=== PATIENT | female | born 1985 | race Caucasian/White ===

== ENCOUNTER → 2019-04-28 | Outpatient (CLI) | payer OTHER ==
[~2019-04-28] VITALS: Ht 157.5 cm; Wt 77.1 kg
[~2019-04-28] MED LIST: BREWER S YEAST PO; CENTRUM SILVER1 EAC2 PO; NORCO 10-325 T1 EACH PO; [UNRECOGNIZED DRUG - OTHER] PO
--- NOTE | ~2019-04-28 | HPC ---
[facility] [place] [address] PAIN MANAGEMENT CONSULTATION Name: EMMANUEL ERICKSON Room #: REG Gerardo Veras.#: [id number] Admission: 04/28/19 ������������������ Attend Phys: Pako Montano MD Discharge: ������������������ Date of : 85 Report #: [id number] THIS REPORT FOR: //name// CC: Dr. Arriaga [facility] physician/PCP Pako Montano DATE OF SERVICE: 04/28/2019 CHIEF COMPLAINT: Left flank pain with history of multiple kidney stones including kidney stone and hydronephrosis during recent . The patient is a yary 33-year-old who is here today at the request of Dr. Arriaga. She has pain in the costovertebral angle on the left. This has been persistent for almost 9 months. She first began experiencing pain in July 2018. At that time, she was early in . Her pregnancies were difficult. She suffered from hyperemesis gravidarum and was requiring IV fluids throughout her . She has had hydronephrosis in the past due to a kidney stone and position of the baby on the right. This was painful in a previous , but resolved after the baby was born. During this , she continued to experience left flank pain throughout the . She had known kidney stones at that time. The baby was born couple of months ago and after delivery, she passed a very large 0.25 inch kidney stone that was painful. It has been difficult to assess her urinalysis because of some post-delivery bleeding. The most recent one, however, which should have been fairly clean, was positive for significant red blood cells. The pain is constant, dull at times, sharp and she scores as a 6/10. It is exacerbated by caffeine and alcohol. The pain is severe enough that it can affect her ability to be a mother and do daily activities, although she pushes through. She has tried nonsteroidal anti-inflammatory drugs and early on after the baby was born, did a dose pack neither of which were helpful. She was given hydrocodone 10/325 and takes no more than 1-3 tablets a day carefully timing her use of medication around her breast feeding. She has noticed no changes in her and with her current plan. If feeding is required shortly after she has taken any medication, she will supplement with formula. She has discussed this with her bottle selector. CURRENT MEDICATIONS: Include hydrocodone 10/325 no more than 3 per day, on average 1-1/2 tablets per day; multivitamins, milk flow capsule and gonzalez's yeast. ALLERGIES: CIPRO, [place] [address] PAIN MANAGEMENT CONSULTATION Name: EMMANUEL ERICKSON Room #: REG LUCIO Agagrwal#: [id number] Admission: 04/28/19 ������������������ Attend Phys: Pako Montano MD Discharge: ������������������ Date of : 85 Report #: [id number] PAST MEDICAL HISTORY: Significant for multiple chronic kidney stones dating back many years, history of surgery for uterine polyps in December 2017, hernia repair in August 2016, rotator cuff surgery in July 2012, sinus surgery in 2018, tonsillectomy in March 2004 and wrist pinning in January 2001. 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 She is . She has 2 children and is currently . She denies use of tobacco. Drinks alcohol very rarely, perhaps once a month. Because of her use of opioids, she did complete an opioid risk tool. She scored 5 based upon one brother who has a history of addictions. Otherwise, I will consider her low risk for misuse, abuse or an opioid risk disorder. REVIEW OF SYSTEMS: Positive for occasional headaches, nocturia or hematuria. PHYSICAL EXAMINATION: GENERAL: She is a very pleasant female. VITAL SIGNS: Blood pressure 120/65, heart rate 81, respirations 16. She is 5 feet 2 inches, 170 pounds, BMI is 31.1. She is currently . MUSCULOSKELETAL: Examination of the spine reveals good range of motion of the lumbar thoracic spine. There is no tenderness along the spinous process and along the paravertebral muscles. She has pain just below the costovertebral angle and below the rib cage on the left. The pain does not radiate from there nor does it extend. It is fairly well localized. In the supine position, she has negative straight leg raising. Deep tendon reflexes are normal. Sensation is normal. Lower extremity strength is normal in lower extremities. IMPRESSION: I believe this pain is likely related to her renal calculus passage one way or another. It would be certainly the most likely pain generator. I noted that there is some controversy about the persistence of pain in the absence of stones, but it would seem to me that since the ureter is so sensitive and carried such significant degree of pain as the stone passes, that some sort of ureteral irritation or inflammation could cause ongoing and persistent chronic pain. If this is true, then all what we need would be tincture of time. She has received second opinions and there is some consideration for doing further diagnostic tests including a cystoscopy, ureteroscopy to evaluate. This would be diagnostic, I believe and not therapeutic. I would personally wait 6 weeks hoping that it would resolve before I would undergo such diagnostic testing that may be irritating as well. Regarding the use of opioid medication at the lowest effective dose, I think her strategy is quite reasonable. As soon as the pain would resolve hopefully within the next 6-8 weeks, she will taper off completely. I think she is at low risk of developing dependence, addiction or an opioid use disorder. We did, [facility] [address] [place] [address] PAIN MANAGEMENT CONSULTATION Name: EMMANUEL ERICKSON Room #: REG CLI Rito.#: [id number] Admission: 04/28/19 ������������������ Attend Phys: Pako Montano MD Discharge: ������������������ Date of : 85 Report #: [id number] however, discuss the importance of eliminating its use as soon as she is able. Thank you for consultation. I would not recommend any other interventional pain management at this time. ��������������������������������������������� ���������������������������������������� By: ��������������������������������������������� [id number] Pako Montano MD /nt
[2019-04-28 09:35] VITALS: BP 120/65
--- NOTE | 2019-04-28 10:09 | NUR ---
Pain Clinic Assessment: 1. History of Osteoarthritis: * History of Rheumatoid Arthritis: NO 2. Height: 5 ft. 2 in. 157.5 cm. Weight: 170.0 lb. oz. 77.112 kg. Patient's BMI: 31.1 3. Vital Signs: BP: 120/65 Pulse: 81 Resp: 16 Temp: 02 Sat: 97 ECG Mon: 4. Pain Intensity: 6 5. Fall Risk: Dizziness: N Needs help standing or walking: N Fallen in the last 3 months: N Fall risk comments: 6. Patient on Blood Thinner: None 7. History of Hypertension: N 8. Opioid Therapy greater than 6 weeks: Opiate Contract Signed: 9. Risk Assessment Tool Provided: 10. Functional Assessment Tool: 11. Recreational Drug Use: Never Drug Type: Tobacco Use: Never Smoker Tobacco Type: Amount or Packs/day: How Many Years: Alcohol Use: Yes Frequency: Quant: 1 DRINK/MONTH
== END ==
LOC: PAIN 06:37
DX: N20.0 Calculus of kidney (principal); N13.39 Other hydronephrosis; Z79.899 Other long term (current) drug therapy; Z88.8 Allergy status to other drugs, medicaments and biological substances